=== PATIENT | female | born 1945 | race Two or more races ===

== ENCOUNTER 2022-03-25 10:06 | Emergency (ER) | payer MEDICARE ==
[~2022-03-25] VITALS: Ht 160 cm; Wt 65.8 kg
--- NOTE | 2022-03-25 10:36 | NUR ---
DR LERMA AT BEDSIDE
[2022-03-25] MEDS ORDERED: ACETAMINOPHEN 325 MG TABLET PO ONE (11:00)
[2022-03-25] MEDS ORDERED: ACETAMINOPHEN ES 500 MG TABLET ONE (11:02)
[2022-03-25] MEDS ORDERED: LISINOPRIL (20MG) 20 MG TABLET ONE (11:28)
[2022-03-25] MEDS ORDERED: LISINOPRIL (10MG) 10 MG TABLET PO SCH (11:30)
--- NOTE | 2022-03-25 11:30 | NUR ---
EXPENSE ANALYST AT BEDSIDE
[2022-03-25] MEDS ORDERED: ACET-868 PO (13:44)
[2022-03-25] MEDS ORDERED: NAPR-1164 PO (13:44)
[2022-03-25] MEDS ORDERED: LIDO30AD10 TP (13:44)
--- NOTE | 2022-03-25 14:02 | NUR ---
Patient discharged to home with son and in stable condition. Written and verbal after care instructions given. Patient verbalizes understanding of instruction. Patient ambulatory w steady gait.
[2022-03-25 14:04] VITALS: BP 124/87
== END 2022-03-25 14:04 | disposition home or self-care (01) ==
LOC: ER 10:09
DX: S30.202A Contusion of unspecified external genital organ, female, initial encounter (principal); S40.021A Contusion of right upper arm, initial encounter; I10 Essential (primary) hypertension; Z88.8 Allergy status to other drugs, medicaments and biological substances; Z79.899 Other long term (current) drug therapy; W18.30XA Fall on same level, unspecified, initial encounter; Y93.89 Activity, other specified; Y92.89 Other specified places as the place of occurrence of the external cause; Y99.8 Other external cause status
CPT/HCPCS: 72170-TC; 72192-TC; 73080-TC; 73090-TC; 73130-TC